=== PATIENT | male | born 1970 | race American Indian/Alaskan Native ===

== ENCOUNTER 2019-01-20 19:52 | Emergency (ER) | payer MEDICAID ==
[2019-01-20 20:05] VITALS: BP 139/84
--- NOTE | 2019-01-20 20:25 | Event Note ---
ED Screening Note Date of service: 01/20/19 Time: 20:22 ED Screening Note: Pt complains cough x this morning states posttussive emesis denies hemoptysis states felt feverish this morning, did measure temp +smoker denies hx of COPD/asthma This initial assessment/diagnostic orders/clinical plan/treatment(s) is/are subject to change based on patients health status, clinical progression and re- assessment by fellow clinical providers in the ED. Further treatment and workup at subsequent clinical providers discretion. Patient/guardian urged not to elope from the ED as their condition may be serious if not clinically assessed and managed. Initial orders include: CXR
[2019-01-20] MEDS ORDERED: BENZONATATE 100 MG CAP PO ONE (20:27)
--- NOTE | 2019-01-20 21:03 | XRay Report ---
CHEST 2 VIEWS INDICATION / CLINICAL INFORMATION: MAIN: cough coughing with MAXWELL, started today, denies HX of asthma or resp problems. COMPARISON: Chest x-ray 03/23/2017 FINDINGS: SUPPORT DEVICES: None. HEART / MEDIASTINUM: No significant abnormality. LUNGS / PLEURA: No significant pulmonary or pleural abnormality. No pneumothorax. ADDITIONAL FINDINGS: Posterior fusion hardware is seen within the cervical upper thoracic spine, unch anged IMPRESSION: 1. No acute findings. Signer Name: Williams Cope MD Signed: 01/20/2019 8:59 PM Workstation Name: [id number]
--- NOTE | 2019-01-21 00:37 | Emergency Department Report ---
- General Chief Complaint: Dyspnea/Respdistress Stated Complaint: MAXWELL/WHEEZING Time Seen by Provider: 01/20/19 20:22 Source: patient Mode of arrival: Ambulatory Limitations: No Limitations - History of Present Illness Initial Comments: 48-year-old [place] male past medical history of hypertension presents emergency department complaining of cough and congestion and coryza that started since yesterday associated with intermittent wheezes Consistency: constant Improves With: nothing Worsens With: nothing Associated Symptoms: rhinorrhea, nasal congestion, sore throat, cough. denies: abdominal pain, vomiting, right sweats, weight loss, hoarseness, ear pain - Related Data Previous Rx's Medication Instructions Recorded Last Taken Type ALBUTEROL Inhaler (OR & NICU) 2 puff IH QID PRN #1 inhalation 01/21/19 Unknown Rx [ProAir HFA Inhaler] Amoxicillin [Amoxicillin TAB] 875 mg PO BID #20 tablet 01/21/19 Unknown Rx guaiFENesin/CODEINE [Robitussin AC] 5 ml PO Q6H PRN #120 ml 01/21/19 Unknown Rx predniSONE [Deltasone] 20 mg PO QDAY #5 tab 01/21/19 Unknown Rx Allergies Allergy/AdvReac Type Severity Reaction Status Date / Time No Known Allergies Allergy Unverified 01/20/19 20:27 ED Review of Systems ROS: Stated complaint: MAXWELL/WHEEZING Other details as noted in HPI Comment: All other systems reviewed and negative ED Past Medical Hx - Past Medical History Previous Medical History?: Yes Hx Hypertension: Yes Additional medical history: Chronic Neck Pain, High Cholesterol, CAD, (C3 to C5) Fracture - Surgical History Hx Coronary Stent: Yes Additional Surgical History: Cervical Fusion - Social History Smoking Status: Current Every Day Smoker Substance Use Type: None - Medications Home Medications: Home Medications Medication Instructions Recorded Confirmed Last Taken Type ALBUTEROL Inhaler (OR & NICU) 2 puff IH QID PRN #1 inhalation 01/21/19 Unknown Rx [ProAir HFA Inhaler] Amoxicillin [Amoxicillin TAB] 875 mg PO BID #20 tablet 01/21/19 Unknown Rx guaiFENesin/CODEINE [Robitussin AC] 5 ml PO Q6H PRN #120 ml 01/21/19 Unknown Rx predniSONE [Deltasone] 20 mg PO QDAY #5 tab 01/21/19 Unknown Rx ED Physical Exam - General Limitations: No Limitations General appearance: alert, in no apparent distress - Head Head exam: Present: atraumatic, normocephalic - Eye Eye exam: Present: normal appearance, PERRL, EOMI Pupils: Present: normal accommodation - ENT ENT exam: Present: normal exam, mucous membranes moist, TM's normal bilaterally, other (nasal congestion) - Neck Neck exam: Present: normal inspection, full ROM. Absent: tenderness, lymphadenopathy - Respiratory Respiratory exam: Present: normal lung sounds bilaterally, rhonchi. Absent: respiratory distress, wheezes, accessory muscle use, decreased breath sounds, prolonged expiratory - Cardiovascular Cardiovascular Exam: Present: regular rate, normal rhythm. Absent: systolic murmur, diastolic murmur, rubs, gallop - GI/Abdominal GI/Abdominal exam: Present: soft, normal bowel sounds - Rectal Rectal exam: Present: deferred - Extremities Exam Extremities exam: Present: normal inspection, normal capillary refill - Back Exam Back exam: Present: normal inspection. Absent: CVA tenderness (R), CVA tenderness (L) - Neurological Exam Neurological exam: Present: alert, oriented X3, CN II-XII intact - Psychiatric Psychiatric exam: Present: normal affect, normal mood - Skin Skin exam: Present: warm, dry, intact, normal color. Absent: rash ED Course Vital Signs 01/20/19 20:01 Temperature 98.6 F Pulse Rate 90 Respiratory 20 Rate Blood Pressure 139/84 O2 Sat by Pulse 98 Oximetry ED Medical Decision Making - Radiology Data Radiology results: report reviewed [address] [address] XRay Report Signed Patient: EDWIN BRAVO MR#: [id number] : 1970 Acct:[id number] Age/Sex: 48 / M ADM Date: 01/20/19 Loc: ED Attending Dr: Ordering Physician: FAUSTINO CHRISTOPHER Date of Service: 01/20/19 Procedure(s): XR chest routine 2V Accession Number(s): [id number] cc: FAUSTINO CHRISTOPHER Fluoro Time In Minutes: CHEST 2 VIEWS INDICATION / CLINICAL INFORMATION: MAIN: cough coughing with MAXWELL, started today, denies HX of asthma or resp problems. COMPARISON: Chest x-ray 03/23/2017 FINDINGS: SUPPORT DEVICES: None. HEART / MEDIASTINUM: No significant abnormality. LUNGS / PLEURA: No significant pulmonary or pleural abnormality. No pneumothorax. ADDITIONAL FINDINGS: Posterior fusion hardware is seen within the cervical upper thoracic spine, unchanged IMPRESSION: 1. No acute findings. Signer Name: Williams Cope MD Signed: 01/20/2019 8:59 PM Workstation Name: [email or web address] Transcribed By: TL Dictated By: Williams Cope MD Electronically Authenticated By: Williams Cope MD Signed Date/Time: 01/20/192058 - Medical Decision Making Procedure department complaining of cough and congestion with intermittent wheezes and diffuse just started today on examination had rhonchi but no wheezing at current. His saturations have been maintaining at 98 or greater is in no acute distress and afebrile. His chest x-ray shows no acute processes. Plan will start him on inhalers steroids Critical care attestation.: If time is entered above; I have spent that time in minutes in the direct care of this critically ill patient, excluding procedure time. ED Disposition Clinical Impression: Cough, Wheeze Disposition: DC-01 TO HOME OR SELFCARE Is pt being admited?: No Does the pt Need Aspirin: No Condition: Stable Instructions: Cold Symptoms (ED), Acute Cough (ED) Referrals: [facility] [Primary Care Provider] - 3-[address] [facility] [Provider Group] - 3-5 Days
== END 2019-01-21 01:30 | disposition home or self-care (01) ==
LOC: ED 19:52
DX: R05 Cough (principal); R06.2 Wheezing; I10 Essential (primary) hypertension; F17.200 Nicotine dependence, unspecified, uncomplicated; E78.00 Pure hypercholesterolemia, unspecified; I25.10 Atherosclerotic heart disease of native coronary artery without angina pectoris
CPT/HCPCS: 71046; 87400